=== PATIENT | male | born 1960 | race Caucasian/White ===

== ENCOUNTER → 2025-02-22 08:31 | Outpatient (REF) | payer OTHER, SELFPAY ==
[2025-02-22 09:20] LABS: % Basophils 1.2 % (0-2); % Eosinophils 4.4 % (0-6); % Immature Granulocytes 0.3 % (0-0.5); % Lymphocytes 24.9 % (20.5-51.1); % Monocytes 11.2 % (1.7-9.3); Absolute Eosinophils 0.2 10^3/uL (0-0.7); Absolute Lymphocytes 0.8 10^3/uL (1.2-3.4); Absolute Monocytes 0.4 10^3/uL (0.1-0.6); Hematocrit 38.4 % (39.0-52.0); Hemoglobin 13.3 g/dL (13.0-18.0); Mean Corp Hgb Conc. 34.6 g/dL (33.0-37.0); Mean Corpuscular Hgb 32.5 pg (27.0-31.0); Mean Corpuscular Volume 93.9 fL (80.0-94.0); Mean Platelet Volume 10.1 fL (7.4-10.4); Nucleated Red Blood Cells % 0 % (-); Platelet Count 210 10^3/uL (130-400); Red Blood Cell Count 4.09 10^6/uL (4.70-6.10); Red Cell Dist. Width 13.3 % (11.5-14.5); White Blood Cell Count 3.4 10^3/uL (4.8-10.8)
[2025-02-22 09:49] LABS: Blood Urea Nitrogen 31 mg/dl (9-20); Calcium 9.5 mg/dl (8.4-10.2); Carbon Dioxide 27 mmol/L (22-30); Chloride 104 mmol/L (98-107); Glucose 107 mg/dl (70-99); Sodium 135 mmol/L (135-145); eGFR > 60.00
== END ==
LOC: RCS 08:31
PROVIDERS: ATTENDING PHYSICIAN Orthopaedic Surgery; FAMILY PHYSICIAN Physician Assistant Medical
DX: Z01.818 Encounter for other preprocedural examination (principal)
CPT/HCPCS: 36415; 80048; 85025; 93005

== ENCOUNTER → 2025-05-02 07:19 | Outpatient (REF) | payer OTHER, SELFPAY | LOC: HWRAD 07:19 | PROVIDERS: ATTENDING PHYSICIAN Physician Assistant Medical; FAMILY PHYSICIAN Physician Assistant Medical | DX: R14.0 Abdominal distension (gaseous) (principal) | CPT/HCPCS: 76700 ==

== ENCOUNTER → 2025-08-01 09:12 | Outpatient (REF) | payer OTHER, SELFPAY | LOC: RAD 09:12 | PROVIDERS: ATTENDING PHYSICIAN Internal Medicine; FAMILY PHYSICIAN Physician Assistant Medical | DX: Z77.090 Contact with and (suspected) exposure to asbestos (principal) | CPT/HCPCS: 71046 ==

== ENCOUNTER 2025-08-14 11:01 | Inpatient (IN) | payer OTHER, SELFPAY ==
[2025-08-13] VITALS (14 sets, daily range): BP systolic 106–127; BP diastolic 45–85; BMI 21.0
--- NOTE | 2025-08-13 07:51 | ED.GENMED ---
History of Present Illness
General
Chief Complaint: Overdose Intentional
Time Seen by Provider: 08/13/25 07:51
History of Present Illness
History of Present Illness:
FOCUSED PAST MEDICAL HISTORY
- History of anxiety, history of reflux
REVIEW OF OLD RECORDS
- Patient had endoscopy 2014
Note:
CHIEF COMPLAINT(S)
Intentional overdose.
HISTORY OF PRESENT ILLNESS
The patient is a 65-year-old male who presented to the emergency department following a suspected overdose. Per the patient, he ingested several medications at approximately 1:00 AM, as an attempt to harm himself, citing feelings of hopelessness
related to ongoing health issues, including anxiety and reflux. He reported taking approximately 10 pills of Lexapro (escitalopram) at 5 milligrams each, 14 pills of Ativan (lorazepam) at 0.5 milligrams each, and 2 pills of Trazodone at 50
milligrams each. He expressed no current suicidal ideation. The patient denied any pain or discomfort at the time of assessment. His called emergency medical services, and he is agreeable to receiving help. The patient denied any history of
psychiatric facility admissions or substance abuse, including drugs or alcohol.
PAST MEDICAL AND SURIGICAL HISTORY
The patient has a history of anxiety and reflux.
CHRONIC MEDICAL CONDITIONS SIGNIFICANTLY AFFECTING CARE
Anxiety and reflux.
MEDICATIONS
- Lexapro (escitalopram) 5 mg, ingestion of approximately 10 pills.
- Ativan (lorazepam) 0.5 mg, ingestion of approximately 14 pills.
- Trazodone 50 mg, ingestion of approximately 2 pills.
PHYSICAL EXAM
General: Alert, no acute distress.
Skin: Warm, dry.
Head: Normocephalic, atraumatic.
Neck: Supple, trachea midline.
Eye, Ears, Nose, Mouth and Throat: Oral mucosa moist.
Cardiovascular: Normal peripheral perfusion, no edema.
Respiratory: Respirations are non-labored.
Gastrointestinal: Abdomen nondistended.
Back: Normal range of motion, normal alignment.
Musculoskeletal: Normal range of motion, normal strength.
Neurological: Alert and oriented to person, place, time, and situation, no focal neurological deficit observed.
Psychiatric: Cooperative, appropriate mood & affect, somewhat flat depressed effect.
PROBLEM LIST
- Acute: Suspected overdose (intentional).
- Chronic: Anxiety, reflux.
PLAN
- Administer IV fluids.
- Continuous cardiac monitoring due to medication ingestion.
- Psychiatric evaluation and potential placement in a psychiatric facility.
- Assess home safety, including the presence of firearms.
DIFFERENTIAL DIAGNOSIS
The Differential Diagnosis includes, in no particular order and is not limited to:
1. Intentional overdose
2. Accidental overdose
3. Depression with suicidal ideation
4. Anxiety exacerbation
5. Medication side effects
6. Serotonin syndrome
7. Substance abuse (denied by the patient)
8. Electrolyte imbalance due to medication ingestion
9. Self-harm behavior
10. Adverse reaction to polypharmacy
EKG
- Sinus 47, left bundle branch block is old, QTc 465 ms
LABS
- Sodium 127
SUMMARY OF ENCOUNTER
The patient, a 65-year-old male, presented to the emergency department following a suspected medication overdose involving escitalopram, lorazepam, and trazodone. The patient expressed feelings of hopelessness and suicidal ideation linked to chronic
health issues. He ingested these medications at approximately 1:00 AM. On assessment, he was alert, cooperative, and had no active suicidal ideation. Clinical evaluation revealed mild hyponatremia, potentially due to escitalopram use. IV fluids were
administered in the emergency department, and continuous cardiac monitoring was conducted. Arrangements for psychiatric facility transfer were initiated due to the nature of the overdose and underlying psychiatric concerns.
DISPOSITION
Transfer to a psychiatric facility.
ASSESSMENT
- Suspected intentional overdose.
- Anxiety and reflux-related symptoms.
- Hyponatremia, likely related to escitalopram use.
PLAN
- Administer IV fluids to address hyponatremia.
- Continuous cardiac monitoring.
- Transfer to a psychiatric facility for further evaluation and treatment.
- Psychiatric evaluation to assess mental health status and any additional interventions required.
INDEPENDENT REVIEW OF LABS AND INTERPRETATION OF TESTS
My independent review of the metabolic panel indicates low sodium (hyponatremia).
FOLLOW-UP INSTRUCTIONS
Arrange for follow-up care post-psychiatric facility discharge, including primary care and mental health specialist evaluations.
MEDICATION RECONCILIATION
- Ingested Medications: Escitalopram (Lexapro) 5 mg, approximately 10 pills; Lorazepam (Ativan) 0.5 mg, approximately 14 pills; Trazodone 50 mg, approximately 2 pills.
MEDICAL DECISION MAKING
- Number and Complexity of Problems Addressed:
Chronic conditions affecting care: Anxiety, reflux.
Differential Diagnosis: Intentional overdose, Accidental overdose, Depression with suicidal ideation, Anxiety exacerbation, Medication side effects, Serotonin syndrome, Electrolyte imbalance due to medication ingestion, Self-harm behavior, Adverse
reaction to polypharmacy.
- Data:
Category 1:
My independent review of the metabolic panel indicates low sodium levels.
Category 3:
The patients case management and transfer were discussed with crisis intervention workers for psychiatric facility placement.
- Risk:
Prescription drug management due to the acute overdose and psychiatric status. Consideration of Admission/Observation: Escalation of care including admission/observation was considered given the complexity and risk of the patients presenting
complaint, exam findings, and/or their underlying comorbidities. However, ultimately I feel the patient is safe for outpatient management with close follow-up. Reasoning: Work-up reassuring, does not reveal any acute life/organ threatening
processes, patients symptoms well controlled upon reevaluation, reexamination is reassuring, vitals are stable, patient agreeable with discharge, reliable for follow-up.
DIAGNOSIS
- Intentional overdose (ICD-10: T36.1X1A).
- Hyponatremia, possibly escitalopram-related (ICD-10: E87.1).
- Anxiety disorder (ICD-10: F41.9).
UPDATE
- I spoke to EMS upon arrival who indicates the patient intentionally overdosed on Ativan, trazodone, and Lexapro
- Mild hyponatremia may be related to Lexapro use
- Tylenol aspirin and alcohol detected, UDS positive for benzos
- Chronic bradycardia noted in the ED and he has been on the middle school tutor
- Patient was was accepted at [facility] however [facility] wants us to discussed with toxicology
- I spoke to the aerial planting and cultivation manager at [facility] who recommends 24 hours on the monitor before medically cleared especially with underlying chronic QTc elevation; he also mention the possibility of delayed seizure
- I also reached out to on-call psychiatrist, Dr. Silva who recommends holding the meds for now
Phy Exam
Physical Exam
Physical Exam:
See HPI
Course
Orders/Labs/Results
Orders:
Orders
08/13/25 07:52
0.9% Sodium Chloride 1000 ml [Nss] 1,000 ml IV BOLUS
08/13/25 08:12
Add On- LAB Urgent
Tests Added?: tsh reflex fT4
Electrocardiogram (*1) Urgent
Reason for Study: QTc Monitoring
Crisis Consult Urgent
Reason for Consult: intentional OD
EKG- Treatment ONCE
08/13/25 08:13
Acetaminophen Urgent
Alcohol Urgent
Complete Blood Count/With Diff Urgent
Comprehensive Metabolic Panel Urgent
Fentanyl, Urine Urgent
Salicylate Urgent
TSH Reflex To Free T4 Urgent
Comment: ADD ON
Urine Drug Abuse Screen Urgent
Date Specimen was Collected: 08/13/25
Time Specimen was Collected: 08:02
08/13/25 08:18
1:1 Observation - Suicide/ Violent Behavior As Directed
Abnormal Lab Results
08/13/25
08:13
WBC 2.5 L 10^3/uL
(4.8-10.8)
RBC 4.67 L 10^6/uL
(4.70-6.10)
MCH 31.7 H pg
(27.0-31.0)
Absolute Neuts (auto) 1.3 L 10^3/uL
(1.4-6.5)
Absolute Lymphs (auto) 0.8 L 10^3/uL
(1.2-3.4)
Monocytes % 12.7 H %
(1.7-9.3)
Sodium 127 L mmol/L
(135-145)
Chloride 92 L mmol/L
(98-107)
BUN 22 H mg/dl
(9-20)
Glucose 102 H mg/dl
(70-99)
Salicylates < 1.0 L mg/dl
(2.0-20.0)
Acetaminophen < 10 L ug/ml
(10-30)
U Benzodiazepines Scrn Positive H
(Negative)
08/13/25 08:13
08/13/25 08:13
Vital Signs
Initial and Last Documented VS:
Initial Vital Signs
Temp Pulse Resp BP Pulse Ox
34.7 C L 47 16 121/67 98
08/13/25 07:53 08/13/25 07:53 08/13/25 07:53 08/13/25 07:53 08/13/25 07:53
Last Documented Vital Signs
Temp Pulse Resp BP Pulse Ox
35.4 C L 56 19 111/63 99
08/13/25 09:47 08/13/25 12:45 08/13/25 12:45 08/13/25 12:00 08/13/25 12:45
*Pulse Oximetry
Patient hypoxic: no
*Critical Care Note
Total Time (30-74mins, 75-104mins- exclusive of procedures): Not Applicable
ED Attending Note
-
Portions of this chart may have been created with voice recognition software.� Occasional wrong word or��sound alike� substitutions may have occurred due to the inherent limitations of voice recognition software.
Discharge Plan
Departure
Patient Disposition: Psych Facility
Date of Disposition: 08/13/25
Time of Disposition: 09:48
Discharge Problem:
Suicide attempt
Referrals:
Laura Hernandez PA-C [Family Provider, Internal Medicine]
Interventions
Interventions:
*General Assessment Last Done: 08/13/25 07:53
*Neglect/Abuse Screening Last Done: 08/13/25 07:53
*ED COVID-19 Vaccine History Last Done: 08/13/25 08:18
*ED Influenza Vaccine History Last Done: 08/13/25 08:18
[facility] Fall Risk Assessment Tool Last Done: 08/13/25 09:46
*Risk Screen - Suicide (C-SSRS) Last Done: 08/13/25 08:17
ED- Cardiac Assessment Last Done: 08/13/25 08:18
ED- Neurological Assessment Last Done: 08/13/25 08:18
ED-Psychological Assessment Last Done: 08/13/25 08:18
ED- Pulmonary Assessment Last Done: 08/13/25 08:18
Discharge Date and Time
Print Language: LATVIAN
[2025-08-13] MEDS: NSS 1000 IV ×2 (08:11→19:35)
[2025-08-13 08:31] LABS: Hematocrit 42.0 % (39.0-52.0); Hemoglobin 14.8 g/dL (13.0-18.0); Mean Corp Hgb Conc. 35.2 g/dL (33.0-37.0); Mean Corpuscular Volume 89.9 fL (80.0-94.0); Nucleated Red Blood Cells % 0 % (-); Platelet Count 193 10^3/uL (130-400); Red Cell Dist. Width 13.0 % (11.5-14.5)
[2025-08-13 08:38] LABS: ALT (SGPT) 41 U/L (0-50); AST (SGOT) 41 U/L (17-59); Acetaminophen < 10 ug/ml (10-30); Albumin 4.5 g/dl (3.5-5.0); Alkaline Phosphatase 64 U/L (38-126); Blood Urea Nitrogen 22 mg/dl (9-20); Calcium 9.2 mg/dl (8.4-10.2); Carbon Dioxide 29 mmol/L (22-30); Chloride 92 mmol/L (98-107); Glucose 102 mg/dl (70-99); Potassium 4.5 mmol/L (3.5-5.1); Salicylate < 1.0 mg/dl (2.0-20.0); Sodium 127 mmol/L (135-145); Total Protein 7.6 g/dl (6.3-8.2); eGFR > 60.00
--- NOTE | 2025-08-13 15:25 | HPS.HSE ---
Family Physician
-
Family Physician: Laura Hernandez PA-C
Chief Complaint
-
Overdose
History of Present Illness
Patient is a 65 years old male with severe anxiety, possible depression who was brought to the emergency room after found down today.
Patient took ten 5 mg Lexapro pills, 14 pills of Ativan 0.5 mg, 2 pills of trazodone 50 mg. Intention was ' get out this pain and anxiety'
Patient was found by his spouse. At the time of the ambulance arrived patient was hemodynamically stable with stable respiratory status. He woke up in the ambulance.
On arrival to the emergency room patient is hemodynamically stable.
Initial workup showed unremarkable laboratory findings except mild hyponatremia. ECG
With sinus bradycardia, old LBBB, and chronically prolonged QT.
Poison Control Center has been contacted with suggestions of close monitoring in the hospital for 24 hours prior to psychiatric disposition.
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
He is following with outpatient psychiatry and recently initiated on Lexapro less than a month ago. He has been taking lorazepam inconsistently over the last few days. He had been prescribed trazodone for sleep and took it once or twice.
Patient also has urinary complaints with retention and dysuria and recently placed on TMP sulfa empirically for UTI.
Medical History
Past Medical History
Past Medical History: Reports GERD and HTN
Past Surgical History: Reports Other (Left total hip arthroplasty. Bilateral inguinal hernia repair remote.)
Social History
Tobacco: Non-smoker
Alcohol: None
Drug: None
Personal:
Living: With Family
Employment: Employed
Family History
Family History: Not pertinent
Allergies / Home Medications
Allergies reflects when Allergies were last updated in [employer].
Home Medications with original date entered in [employer]
Allergy/Medication List:
Allergies
Allergy/AdvReac Type Severity Reaction Status Date / Time
No Known Allergies Allergy Unverified 08/13/25 08:08
Home Medications
escitalopram oxalate 5 mg tablet (Lexapro) 5 mg PO DAILY Mental Health/Anxiety 08/13/25
famotidine 20 mg tablet (Pepcid AC) 40 mg PO BID Gastrointestinal Issue 08/13/25
lorazepam 0.5 mg tablet 0.5 mg PO HSPRN PRN sleep 08/13/25
magnesium oxide 500 mg capsule 500 mg PO HS Supplement 08/13/25
olmesartan 5 mg tablet (Benicar) 5 mg PO DAILY Heart Disease/Condition 08/13/25
sulfamethoxazole 800 mg-trimethoprim 160 mg tablet (Bactrim DS) 1 tab PO BID Infection 08/13/25
therapeutic multivitamin 1 tab PO DAILY 08/13/25
Review of Systems
-
A 12 point ROS was completed and negative except as noted: Yes
Physical Exam
Vital Signs
Vital Signs
Temp Pulse Resp BP Pulse Ox
96.7 F L 56 19 111/63 99
08/13/25 13:36 08/13/25 12:45 08/13/25 12:45 08/13/25 12:00 08/13/25 12:45
Physical Exam
General: Well Developed, Well Nourished and No Apparent Distress
HEENT: NormoCephalic, Moist mucous membranes and Atraumatic
Respiratory: Clear
Cardiac: S1/S2 and Regular Rhythm; No Murmur or Rub
GI: Soft, Non Tender, Non Distended and Normal Bowel Sounds; No Organomegaly
Rectal: Deferred by Provider
Musculoskeletal: No Clubbing, No Cyanosis and No Edema
Skin: No Rash
Neuro: Nonfocal/grossly intact
Laboratory Results
-
08/13/25 08:13
08/13/25 08:13
Laboratory Results
Total Bilirubin 1.0 mg/dl (0.2-1.3) 08/13/25 08:13
AST 41 U/L (17-59) 08/13/25 08:13
ALT 41 U/L (0-50) 08/13/25 08:13
Alkaline Phosphatase 64 U/L (38-126) 08/13/25 08:13
Impression/Plan
-
Impression
Intentional drug overdose with Lexapro, trazodone, Ativan.
Hyponatremia
Conditions prior to admission
Anxiety, possible depression versus adjustment disorder
Hypertension
GERD
Left hip arthroplasty May 2025
PLAN:
Intentional drug overdose with Lexapro trazodone and Ativan
Currently patient denies any suicidal ideation, although frustrated and anxious about his medical conditions and being out of work.
ED reviewed with Poison Control Center with recommendation of close monitoring.
ECG with sinus bradycardia, LBBB and chronic QT prolongation.
Monitor on telemetry
IV fluids
Repeat ECG in AM.
Psychiatry consultation for final disposition. Currently suggested to inpatient psych treatment
Hyponatremia sodium 127
Normotensive
Check TSH
Check urine osmolarity
Hold SSRI for now (trazodone and Lexapro)
Follow BMP
Challenge with isotonic solution.
Urinary complaints including dysuria possibly retention.
Empirically treated UTI with TMP sulfa.
Recheck urinalysis and reflex to culture.
Bladder scan for retention.
Hold off on further antibiotics.
--- NOTE | 2025-08-13 17:37 | EDCM ---
Reviewed chart and met with pt bedside in ED. Lives with his in [address], [address]. Has first floor half bath.
Independent in ADLs, personal care and ambulation at baseline.
PMH includes anxiety, reflux, HTN and L Hip replacement in May.
Confirms prescription coverage.
Hx VN after L hip replacement, unsure of agency, no hx SNF
PCP: Laura Hernandez
Pharmacy: [facility]
OBS form reviewed and signed.
CM will continue to follow for all discharge planning needs.
[2025-08-13] MEDS: PEPCID 40 MG PO (19:34)
[2025-08-13] MEDS: HEPARIN 5000 UNITS SC (19:34)
--- NOTE | 2025-08-13 20:50 | PTCARENOTE ---
Pt arrived to unit from ED via stretcher. 1:[address] for suicide attempt. Pt stood and pivoted from the stretcher to the bed with an assist of 1. Pt A & O x 3. VSS. Pt oriented to room. Call robledo within reach. 1:1 sitter at the
bedside.
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
--- NOTE | 2025-08-14 00:04 | PTCARENOTE ---
Pt admitted to ED for suicide attempt with substance overdose. Pt ingested copious amounts of prescription drugs. Provider is aware. 1:1 observation ordered and maintained.
[2025-08-14 03:00] VITALS: BP 115/60
[2025-08-14 05:01] LABS: Urine Character Clear (Clear)
[2025-08-14] MEDS: NSS 1000 IV (05:44)
[2025-08-14 07:38] LABS: Hematocrit 37.4 % (39.0-52.0); Hemoglobin 13.0 g/dL (13.0-18.0); Mean Corp Hgb Conc. 34.8 g/dL (33.0-37.0); Mean Corpuscular Volume 92.1 fL (80.0-94.0); Nucleated Red Blood Cells % 0 % (-); Platelet Count 157 10^3/uL (130-400); Red Cell Dist. Width 13.2 % (11.5-14.5)
[2025-08-14 07:57] VITALS: BP 127/74
[2025-08-14] MEDS: HEPARIN 5000 UNITS SC (08:14)
[2025-08-14] MEDS: PEPCID 40 MG PO ×2 (08:14→19:59)
[2025-08-14 08:30] LABS: Blood Urea Nitrogen 19 mg/dl (9-20); Calcium 8.5 mg/dl (8.4-10.2); Carbon Dioxide 25 mmol/L (22-30); Chloride 91 mmol/L (98-107); Estimated Creatinine Clearance 88 ml/min; Glucose 86 mg/dl (70-99); Potassium 4.7 mmol/L (3.5-5.1); Sodium 121 mmol/L (135-145); eGFR > 60.00
--- NOTE | 2025-08-14 11:16 | W.CON.NEPH ---
Consultation
-
Date/Time Consultation Requested: 08/14/2025 11:15 AM
Date/Time Consultation Performed: 08/14/2025 11:15 AM
Requesting Provider: Dr. Briggs
Performing Provider: Dr. Moore
Reason for Consultation: Hyponatremia
Medical History
-
Chief Complaint: Hyponatremia
History of Present Illness:
Patient is a 65 years old male with severe anxiety maintained on lorazepam and lexapro, HTN on Olmesartan, possible depression who was brought to the emergency room after found down today.
Patient took ten 5 mg Lexapro pills, 14 pills of Ativan 0.5 mg, 2 pills of trazodone 50 mg. Intention was ' get out this pain and anxiety'
Patient was found by his spouse. At the time of the ambulance arrived patient was hemodynamically stable with stable respiratory status. He woke up in the ambulance.
On arrival to the emergency room patient is hemodynamically stable.
Initial workup showed unremarkable laboratory findings except mild hyponatremia. ECG
With sinus bradycardia, old LBBB, and chronically prolonged QT.
Poison Control Center has been contacted with suggestions of close monitoring in the hospital for 24 hours prior to psychiatric disposition.
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
He is following with outpatient psychiatry and recently initiated on Lexapro less than a month ago. He has been taking lorazepam inconsistently over the last few days. He had been prescribed trazodone for sleep and took it once or twice.
Patient also has urinary complaints with retention and dysuria and recently placed on TMP sulfa empirically for UTI. His serum sodium is now depressed from 129 on admission to 121 and nephrology was asked to see the patient. Urine osm 675.
Past Medical History
Past Medical History: Reports GERD and HTN,Depressiona and Anxiety
Past Surgical History: Reports Other (Left total hip arthroplasty. Bilateral inguinal hernia repair remote.)
Social History
Tobacco: Non-Smoker
Alcohol: None
Drug: None
Family History
Family History: Not Pertinent
Allergies / Home Medications
Allergy/AdvReac Type Severity Reaction Status Date / Time
No Known Allergies Allergy Unverified 08/13/25 08:08
�Medication �Instructions �Recorded �Confirmed �Type
escitalopram oxalate 5 mg tablet 5 mg PO DAILY Mental Health/Anxiety 08/13/25 08/13/25 History
(Lexapro)
famotidine 20 mg tablet (Pepcid AC) 40 mg PO BID Gastrointestinal Issue 08/13/25 08/13/25 History
lorazepam 0.5 mg tablet 0.5 mg PO HSPRN PRN sleep 08/13/25 08/13/25 History
magnesium oxide 500 mg capsule 500 mg PO HS Supplement 08/13/25 08/13/25 History
olmesartan 5 mg tablet (Benicar) 5 mg PO DAILY Heart 08/13/25 08/13/25 History
Disease/Condition
sulfamethoxazole 800 1 tab PO BID Infection 08/13/25 08/13/25 History
mg-trimethoprim 160 mg tablet
(Bactrim DS)
therapeutic multivitamin 1 tab PO DAILY Supplement 08/13/25 08/13/25 History
Review of Systems
-
History Source: Patient
All other systems: Negative unless noted
Physical Exam
Vital Signs
Vital Signs
Temp Pulse Resp BP Pulse Ox
97.6 F 55 18 127/74 97
08/14/25 07:57 08/14/25 07:57 08/14/25 07:57 08/14/25 07:57 08/14/25 07:57
Lab Results
08/14/25 07:26
WBC 2.5 10^3/uL (4.8-10.8) L 08/14/25 07:26
RBC 4.06 10^6/uL (4.70-6.10) L 08/14/25 07:26
Hgb 13.0 g/dL (13.0-18.0) 08/14/25 07:26
Hct 37.4 % (39.0-52.0) L 08/14/25 07:26
Plt Count 157 10^3/uL (130-400) 08/14/25 07:26
eGFR > 60.00 08/14/25 07:26
Albumin 4.5 g/dl (3.5-5.0) 08/13/25 08:13
Physical Exam
General: Well Developed, Well Nourished and No Apparent Distress, awake alert and orient x 3
HEENT: NormoCephalic, Moist mucous membranes and Atraumatic
Respiratory: Clear bilaterally with normal lung excursion
Cardiac: S1/S2 and Regular Rhythm; No Murmur or Rub
GI: Soft, Non Tender, Non Distended and Normal Bowel Sounds; No Organomegaly
Rectal: Deferred by Provider
Musculoskeletal: No Clubbing, No Cyanosis and No Edema
Skin: No Rash
Neuro: Nonfocal/grossly intact
Vascular: 2+ radial and dorsalis pedis pulse
Data Reviewed
-
Medical Tests (Nuc Med, Echo etc): Other (EKG report reviewed personally 40 bpm bradycardia there was a left bundle branch block pattern noted)
Labs: Labs Reviewed by me (BMP CBC urine osm)
Old Records: Reviewed (reviewed old labs from [facility] 02/22/25)
Assessment/Plan
-
Impression:
Intentional drug overdose with Lexapro, trazodone, Ativan.
Hyponatremia
HTN
Anxiety/Depression
Plan:
-Hyponatremia likely consistent with SIADH potentiated by SSRI overdose urine Osmo greater than 6
- Withholding SSRI
- Discontinue isotonic saline and will provide hypertonic saline
- Fluid restriction to 1200 cc daily
- Follow-up lites in 6 hours
--- NOTE | 2025-08-14 11:31 | W.PN.UPDATE ---
Update Note
Progress Note Update
patient seen chart reviewed. spoke to nursing and to dr good. the patient admits to overdose of his medication. he said it was a cry for help he did not really want to but felt so overwhelmed by health issues, the stress of working etc etc.
the one bright spot in his life is his two month old grandson but he worries w all his medical issues he won't be able to be there for him. 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 his attention and
concentration was impaired not only by his depression but he felt made worse by lexapro which had helped him before. i wondered if the low sodium was also contributory to issues w focus. at this point patient does not want to .he has family who
love him and wants to be there for them. he is willing to go to in patient psych for treatment which we are looking into although doubtful he can go with sodium of 121. may need to wait until tomorrow or the next day. need to hold off on antidep
at the moment. psych will follow can dc one to one. patient states he can contract for safety
[2025-08-14 11:39] VITALS: BP 128/77
--- NOTE | 2025-08-14 12:00 | W.PN.HOSP.TC ---
Today's Communication/Plan
-
Hyponatremia management
Assessment / Plan
Assessment / Plan
Impression
Intentional drug overdose with Lexapro, trazodone, Ativan.
Hyponatremia
Conditions prior to admission
Anxiety, possible depression versus adjustment disorder
Hypertension
GERD
Left hip arthroplasty May 2025
PLAN:
Intentional drug overdose with Lexapro trazodone and Ativan
Currently patient denies any suicidal ideation, although frustrated and anxious about his medical conditions and being out of work.
ED reviewed with [facility] with recommendation of close monitoring.
ECG with sinus bradycardia, LBBB and chronic QT prolongation.
Follow-up ECG with stable QTc at 465
And further interview denies any suicidal ideation
Psychiatry input appreciated recommending inpatient psych treatment
Hyponatremia sodium 127�121
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
Normotensive
Abnormal TFT
Urine osmolarity 625 confirms high ADH state
Hold SSRI for now (trazodone and Lexapro)
He does report dizziness and concentration issues.
Free water restriction to 1200 mL
Hypertonic solution
Serial BMP
Nephrology evaluation
Urinary complaints including dysuria possibly retention.
Empirically treated UTI with TMP sulfa.
Afebrile
No urinary complaints currently
Repeat urinalysis normal
Monitor closely off antibiotic
Anticipated Discharge: 24 - 48 hours
Subjective/Interval History
-
Date of Service: August 14, 2025
Objective Data
-
Labs:
Laboratory Results
08/14/25 08/14/25 08/14/25
07:26 11:14 19:01
WBC 2.5 L
Hgb 13.0
Hct 37.4 L
Plt Count 157
Sodium 121 L Pending Pending
Potassium 4.7 Pending Pending
Chloride 91 L Pending Pending
Carbon Dioxide 25 Pending Pending
BUN 19 Pending Pending
Creatinine 0.9 Pending Pending
Glucose 86 Pending Pending
Calcium 8.5 Pending Pending
Vital Signs:
Vital Signs
Temp Pulse Resp BP Pulse Ox
98.1 F 50 16 128/77 98
08/14/25 11:39 08/14/25 11:39 08/14/25 11:39 08/14/25 11:39 08/14/25 11:39
I&O
08/13/25 08/14/25 08/15/25
06:59 06:59 06:59
Intake Total 480 / 480
Output Total 350 / 350
Balance 130 / 130
Physical Exam
-
General: Well Developed and No Apparent Distress
HEENT: Normocephalic, Atraumatic and Moist Mucous Membranes
Respiratory: Clear to Auscultation
Cardiac: Regular Rhythm and S1/S2; Negative Murmur, Rub or Gallop
GI: Soft, Nontender, Nondistended and Normal Bowel Sounds; Negative Organomegaly
Rectal: Deferred by Provider
Musculoskeletal: No Clubbing, No Cyanosis and No Edema
Skin: Negative Rash
Neuro: Nonfocal/Grossly Intact
[2025-08-14] MEDS: SODIUM CHLORIDE 3% 250 IV ×2 (12:22→20:52)
[2025-08-14 13:53] LABS: Blood Urea Nitrogen 18 mg/dl (9-20); Calcium 8.3 mg/dl (8.4-10.2); Carbon Dioxide 27 mmol/L (22-30); Chloride 89 mmol/L (98-107); Estimated Creatinine Clearance 88 ml/min; Glucose 82 mg/dl (70-99); Potassium 4.3 mmol/L (3.5-5.1); Sodium 120 mmol/L (135-145); eGFR > 60.00
[2025-08-14 15:51] VITALS: BP 137/79
[2025-08-14 16:04] VITALS: BMI 21.0
--- NOTE | 2025-08-14 18:04 | CM ---
Transitioned to inpatient.Stabilize NA levels. Discharge POC: When medically stable find appropriate psych placement.
[2025-08-14 19:17] VITALS: BP 139/73
[2025-08-14] MEDS: HEPARIN SC (19:59)
[2025-08-14 20:34] LABS: Blood Urea Nitrogen 18 mg/dl (9-20); Calcium 8.2 mg/dl (8.4-10.2); Carbon Dioxide 24 mmol/L (22-30); Chloride 90 mmol/L (98-107); Estimated Creatinine Clearance 99 ml/min; Glucose 113 mg/dl (70-99); Potassium 4.3 mmol/L (3.5-5.1); Sodium 118 mmol/L (135-145); eGFR > 60.00
--- NOTE | 2025-08-14 21:05 | PTCARENOTE ---
Sodium resulted at 118. Provider notified and orders received. Pt c/o feeling weak and tired. Placed pt on seizure precautions. No seizure pads available on unit. Placed pillows and blankets around bed rails for safety.
[2025-08-14 23:11] VITALS: BP 129/73
[2025-08-15] VITALS (7 sets, daily range): BP systolic 121–133; BP diastolic 63–75
[2025-08-15 01:47] LABS: Blood Urea Nitrogen 19 mg/dl (9-20); Calcium 8.1 mg/dl (8.4-10.2); Carbon Dioxide 22 mmol/L (22-30); Chloride 94 mmol/L (98-107); Estimated Creatinine Clearance 99 ml/min; Glucose 95 mg/dl (70-99); Potassium 4.3 mmol/L (3.5-5.1); Sodium 122 mmol/L (135-145); eGFR > 60.00
--- NOTE | 2025-08-15 03:02 | W.PN.UPDATE ---
Update Note
Progress Note Update
1999 Na 118, Hypertonic solution order placed per grout pump operator.
0200 Na 122
0250 RN reports HR 20's -30's patient asymptomatic. BP 124/63 HR 52 SPo2 97 room air RR 16 BS 101, denies hx of sleep apnea
EKG done labs ordered for AM
strip noted, likely false alarm. HR 44
patient with no new symptoms.
will continue hypertonic solutions per grout pump operator
will d/c Trop and TSH order.
[2025-08-15 03:07] LABS: Glucose - Point of Care 106 mg/dl (70-99)
[2025-08-15 04:21] LABS: Hematocrit 34.5 % (39.0-52.0); Hemoglobin 11.9 g/dL (13.0-18.0); Mean Corp Hgb Conc. 34.5 g/dL (33.0-37.0); Mean Corpuscular Volume 92.2 fL (80.0-94.0); Platelet Count 148 10^3/uL (130-400); Red Cell Dist. Width 13.1 % (11.5-14.5)
[2025-08-15 04:48] LABS: Blood Urea Nitrogen 18 mg/dl (9-20); Calcium 8.1 mg/dl (8.4-10.2); Carbon Dioxide 23 mmol/L (22-30); Chloride 95 mmol/L (98-107); Estimated Creatinine Clearance 99 ml/min; Glucose 89 mg/dl (70-99); Potassium 4.3 mmol/L (3.5-5.1); Sodium 122 mmol/L (135-145); eGFR > 60.00
[2025-08-15] MEDS: SODIUM CHLORIDE 3% 250 IV (06:02)
[2025-08-15] MEDS: PEPCID 40 MG PO ×2 (09:13→20:06)
[2025-08-15] MEDS: HEPARIN SC ×2 (09:17→20:09)
[2025-08-15 09:33] LABS: Blood Urea Nitrogen 17 mg/dl (9-20); Calcium 8.1 mg/dl (8.4-10.2); Carbon Dioxide 24 mmol/L (22-30); Chloride 94 mmol/L (98-107); Estimated Creatinine Clearance 99 ml/min; Glucose 98 mg/dl (70-99); Potassium 4.1 mmol/L (3.5-5.1); Sodium 122 mmol/L (135-145); eGFR > 60.00
--- NOTE | 2025-08-15 10:53 | W.PN.UPDATE ---
Update Note
Progress Note Update
patient seen chart reviewed. spoke with nursing. 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 he is very willing to get to a psych facility 'i want help'. his sodium however remains too low for dc to psych. he is very worried there is something else wrong with
him eg occult malignancy. he lost 8 lbs, had some prostate issue. communicated this to dr hernandez. we discussed the issue of antidep and hyponatremia. also gave him info about the general rx of depression with meds, what he might expect on psych
unit. he is very motivated for treatment to deal with his depression and anxiety.
--- NOTE | 2025-08-15 13:33 | W.PN.HOSP.TC ---
Today's Communication/Plan
-
Symptomatic hyponatremia (blurry vision)
Currently on hypertonic solution
Free water restriction
Off SSRI
Follow BMP
Assessment / Plan
Assessment / Plan
Impression
Intentional drug overdose with Lexapro, trazodone, Ativan.
Hyponatremia
Conditions prior to admission
Anxiety, possible depression versus adjustment disorder
Hypertension
GERD
Left hip arthroplasty May 2025
PLAN:
Intentional drug overdose with Lexapro trazodone and Ativan
Currently patient denies any suicidal ideation, although frustrated and anxious about his medical conditions and being out of work.
ED reviewed with [facility] Control Center with recommendation of close monitoring.
ECG with sinus bradycardia, LBBB and chronic QT prolongation.
Follow-up ECG with stable QTc at 465
And further interview denies any suicidal ideation
Psychiatry input appreciated recommending inpatient psych treatment
Hyponatremia sodium alexx at 118�122
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
Normotensive
Normal TSH
Urine osmolarity 625 confirms high ADH state
Hold SSRI for now (trazodone and Lexapro)
He does report dizziness and concentration issues.
Free water restriction to 1200 mL
Hypertonic solution
Serial BMP
Nephrology follow-up
Urinary complaints including dysuria possibly retention.
Empirically treated UTI with TMP sulfa.
Afebrile
No urinary complaints currently
Repeat urinalysis normal
Monitor closely off antibiotic
Check PSA
Anticipated Discharge: 24 - 48 hours
Subjective/Interval History
-
Date of Service: August 15, 2025
Objective Data
-
Labs:
Laboratory Results
08/15/25 08/15/25 08/15/25
01:11 04:03 04:09
WBC 2.5 L
Hgb 11.9 L
Hct 34.5 L
Plt Count 148
Sodium 122 L 122 L
Potassium 4.3 4.3
Chloride 94 L 95 L
Carbon Dioxide 22 23
BUN 19 18
Creatinine 0.8 0.8
Glucose 95 89
Calcium 8.1 L 8.1 L
08/15/25 08/15/25 08/15/25
08:14 11:01 16:00
WBC
Hgb
Hct
Plt Count
Sodium 122 L Cancelled Pending
Potassium 4.1 Cancelled Pending
Chloride 94 L Cancelled Pending
Carbon Dioxide 24 Cancelled Pending
BUN 17 Cancelled Pending
Creatinine 0.8 Cancelled Pending
Glucose 98 Cancelled Pending
Calcium 8.1 L Cancelled Pending
08/15/25
23:59
WBC
Hgb
Hct
Plt Count
Sodium Pending
Potassium Pending
Chloride Pending
Carbon Dioxide Pending
BUN Pending
Creatinine Pending
Glucose Pending
Calcium Pending
Vital Signs:
Vital Signs
Temp Pulse Resp BP Pulse Ox
98.3 F 51 16 124/68 99
08/15/25 11:05 08/15/25 11:05 08/15/25 11:05 08/15/25 11:05 08/15/25 11:05
I&O
08/14/25 08/15/25 08/16/25
06:59 06:59 06:59
Intake Total 480 / 480 1080 / 1080
Output Total 350 / 350 275 / 275
Balance 130 / 130 805 / 805
Physical Exam
-
General: Well Developed and No Apparent Distress
HEENT: Normocephalic, Atraumatic and Moist Mucous Membranes
Respiratory: Clear to Auscultation
Cardiac: Regular Rhythm and S1/S2; Negative Murmur, Rub or Gallop
GI: Soft, Nontender, Nondistended and Normal Bowel Sounds; Negative Organomegaly
Rectal: Deferred by Provider
Musculoskeletal: No Clubbing, No Cyanosis and No Edema
Skin: Negative Rash
Neuro: Nonfocal/Grossly Intact
--- NOTE | 2025-08-15 15:53 | W.PN.NEPH.PH ---
Today's Communication / Plan
-
Samsca
Assessment/Plan
-
Impression:
Intentional drug overdose with Lexapro, trazodone, Ativan.
Hyponatremia
HTN
Anxiety/Depression
Plan:
-Hyponatremia likely consistent with SIADH potentiated by SSRI overdose urine Osmo greater than 6/reviewed previous labs from 2019 as patient had logged onto [facility] show that his sodiums typically run in the low 130-132 and at that time he was on
Lexapro as well.
- Withholding SSRI
- Fluid restriction to 1200 cc daily
- Follow-up lites in 6 hours
Will give 1 dose of Samsca as sodium has plateaued at 122
-
-
Date of Service: August 15, 2025
CC / HPI / ROS
-
Chief Complaint:
Hyponatremia
History of Present Illness:
Hyponatremia in the setting of SSRI and overdose
Review of Systems:
No chest pain or shortness of breath
Labs
-
Labs:
WBC 2.5 10^3/uL (4.8-10.8) L 08/15/25 04:09
RBC 3.74 10^6/uL (4.70-6.10) L 08/15/25 04:09
Hgb 11.9 g/dL (13.0-18.0) L 08/15/25 04:09
Hct 34.5 % (39.0-52.0) L 08/15/25 04:09
Plt Count 148 10^3/uL (130-400) 08/15/25 04:09
eGFR Cancelled 08/15/25 11:01
Albumin 4.5 g/dl (3.5-5.0) 08/13/25 08:13
Physical Exam
-
Vital Signs:
Vital Signs
Temp Pulse Resp BP Pulse Ox
98.1 F 53 16 131/75 99
08/15/25 15:40 08/15/25 15:40 08/15/25 15:40 08/15/25 15:40 08/15/25 15:40
Respiratory:: Bilateral: CTA
Lung Excursion:: Normal
Abdomen:: Soft
Bowel Sounds:: Normal
Extremity Edema:: None: Bilateral:
[2025-08-15 16:30] LABS: Blood Urea Nitrogen 20 mg/dl (9-20); Calcium 8.3 mg/dl (8.4-10.2); Carbon Dioxide 25 mmol/L (22-30); Chloride 92 mmol/L (98-107); Estimated Creatinine Clearance 88 ml/min; Glucose 95 mg/dl (70-99); Potassium 4.2 mmol/L (3.5-5.1); Sodium 122 mmol/L (135-145); eGFR > 60.00
[2025-08-15] MEDS: SAMSCA 15 MG PO (16:35)
[2025-08-15 17:00] LABS: PSA, Total - Screen 0.24 ng/ml (0.0-4.0)
--- NOTE | 2025-08-15 17:02 | CM ---
Per physician patient not medically appropriate for placement at this time. CM will continue to follow for placement when medically appropriate.
Plan; psych placement when medically appropriate.
[2025-08-15] MEDS: COLACE 100 MG PO (20:06)
[2025-08-16 00:26] LABS: Blood Urea Nitrogen 20 mg/dl (9-20); Calcium 9.0 mg/dl (8.4-10.2); Carbon Dioxide 26 mmol/L (22-30); Chloride 99 mmol/L (98-107); Estimated Creatinine Clearance 113 ml/min; Glucose 98 mg/dl (70-99); Potassium 4.1 mmol/L (3.5-5.1); Sodium 128 mmol/L (135-145); eGFR > 60.00
[2025-08-16 02:27] LABS: Blood Urea Nitrogen 19 mg/dl (9-20); Calcium 8.8 mg/dl (8.4-10.2); Carbon Dioxide 25 mmol/L (22-30); Chloride 100 mmol/L (98-107); Estimated Creatinine Clearance 113 ml/min; Glucose 96 mg/dl (70-99); Potassium 4.2 mmol/L (3.5-5.1); Sodium 130 mmol/L (135-145); eGFR > 60.00
[2025-08-16 03:27] VITALS: BP 110/67
[2025-08-16 07:45] VITALS: BP 112/64
--- NOTE | 2025-08-16 09:06 | W.PN.NEPH.PH ---
Today's Communication / Plan
-
Samsca
Assessment/Plan
-
Impression:
Intentional drug overdose with Lexapro, trazodone, Ativan.
Hyponatremia
HTN
Anxiety/Depression
Plan:
Continue fluid restriction
Samsca today
Follow BMP
Psychiatry follow-up
-
-
Date of Service: August 16, 2025
CC / HPI / ROS
-
Chief Complaint:
Hyponatremia
History of Present Illness:
Hyponatremia in the setting of SSRI and overdose
Sodium up to 130 after Samsca
BP stable off olmesartan
Review of Systems:
No chest pain or shortness of breath
Labs
-
Labs:
WBC 2.5 10^3/uL (4.8-10.8) L 08/15/25 04:09
RBC 3.74 10^6/uL (4.70-6.10) L 08/15/25 04:09
Hgb 11.9 g/dL (13.0-18.0) L 08/15/25 04:09
Hct 34.5 % (39.0-52.0) L 08/15/25 04:09
Plt Count 148 10^3/uL (130-400) 08/15/25 04:09
eGFR > 60.00 08/16/25 01:55
Albumin 4.5 g/dl (3.5-5.0) 08/13/25 08:13
Physical Exam
-
Vital Signs:
Vital Signs
Temp Pulse Resp BP Pulse Ox
97.5 F 46 16 110/67 96
08/16/25 03:27 08/16/25 03:27 08/16/25 03:27 08/16/25 03:27 08/16/25 03:27
Cardiovascular:: Regular rate and rhythm
Respiratory:: Bilateral: CTA
Lung Excursion:: Normal
Abdomen:: Nontender and Soft
Bowel Sounds:: Normal
Extremity Edema:: None: Bilateral:
[2025-08-16] MEDS: PEPCID 40 MG PO ×2 (09:53→19:45)
[2025-08-16] MEDS: SAMSCA 15 MG PO (09:53)
[2025-08-16] MEDS: HEPARIN SC ×2 (09:54→19:45)
[2025-08-16 10:46] LABS: Blood Urea Nitrogen 18 mg/dl (9-20); Calcium 9.0 mg/dl (8.4-10.2); Carbon Dioxide 28 mmol/L (22-30); Chloride 94 mmol/L (98-107); Estimated Creatinine Clearance 88 ml/min; Glucose 86 mg/dl (70-99); Potassium 4.5 mmol/L (3.5-5.1); Sodium 130 mmol/L (135-145); eGFR > 60.00
--- NOTE | 2025-08-16 11:08 | W.PN.UPDATE ---
Update Note
Progress Note Update
patient seen chart reviewed. discussed with nursing and cm. 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 sodium is coming up...last 130 this am. he asked me to tell him about local
facilities...what he can expect in terms of treatment, what he can bring.....[facility] tells me that had accepted him before medical issues necessitated his admit here. she is sending them clinical and hopefully he will be able to be transferred
there today or tomorrow.
[2025-08-16 11:11] VITALS: BP 134/70
--- NOTE | 2025-08-16 12:28 | PTCARENOTE ---
Assumed care of patient. Independent in the room. No needs at this time. Awaiting Dr Briggs for continued discharge planning.
--- NOTE | 2025-08-16 14:51 | CM ---
CM sent updated clinical information to [facility] this am and just received notice that [facility] wants all levels within normal range before patient is transferred. CM updated patient and information sent via tt to physician. Per [facility]
does not accept outside 201 and no 201 on chart at this time. CM completed all documentation for transfer forms and will follow for discharge planning needs.
Plan; voluntary 201 to [facility] when patient medically appropriate and pending bed availability
[2025-08-16 15:41] VITALS: BP 131/77
--- NOTE | 2025-08-16 16:47 | W.PN.HOSP.TC ---
Today's Communication/Plan
-
Sodium improved at 130.
Repeat Samsca today.
Disposition with plan for inpatient psych facility. They would accept only when sodium is 135 and above
Assessment / Plan
Assessment / Plan
Impression
Intentional drug overdose with Lexapro, trazodone, Ativan.
Hyponatremia
Conditions prior to admission
Anxiety, possible depression versus adjustment disorder
Hypertension
GERD
Left hip arthroplasty May 2025
PLAN:
Intentional drug overdose with Lexapro trazodone and Ativan
Currently patient denies any suicidal ideation, although frustrated and anxious about his medical conditions and being out of work.
ED reviewed with [facility] Control [facility] with recommendation of close monitoring.
ECG with sinus bradycardia, LBBB and chronic QT prolongation.
Follow-up ECG with stable QTc at 465
And further interview denies any suicidal ideation
Psychiatry input appreciated recommending inpatient psych treatment
Hyponatremia sodium alexx at 118�122
Suspect acute on chronic
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
Normotensive
Normal TSH
Urine osmolarity 625 confirms high ADH state
Hold SSRI for now (trazodone and Lexapro)
He does report dizziness and concentration issues.
Free water restriction to 1200 mL
Status post hypertonic solution
Status post Samsca second dose today
Sodium improved at 130
Serial BMP
Nephrology input appreciated
Urinary complaints including dysuria possibly retention.
Empirically treated UTI with TMP sulfa.
Afebrile
No urinary complaints currently
Repeat urinalysis normal
Monitor closely off antibiotic
PSA 0.24
Anticipated Discharge: Within 24 hours
Subjective/Interval History
-
Date of Service: August 16, 2025
Objective Data
-
Labs:
Laboratory Results
08/16/25
09:46
Sodium 130 L
Potassium 4.5
Chloride 94 L
Carbon Dioxide 28
BUN 18
Creatinine 0.9
Glucose 86
Calcium 9.0
Vital Signs:
Vital Signs
Temp Pulse Resp BP Pulse Ox
98.6 F 54 16 131/77 99
08/16/25 15:41 08/16/25 15:41 08/16/25 15:41 08/16/25 15:41 08/16/25 15:41
I&O
08/15/25 08/16/25 08/17/25
06:59 06:59 06:59
Intake Total 1080 / 1080 1460 / 1460
Output Total 275 / 275
Balance 805 / 805 1460 / 1460
Physical Exam
-
General: Well Developed and No Apparent Distress
HEENT: Normocephalic, Atraumatic and Moist Mucous Membranes
Respiratory: Clear to Auscultation
Cardiac: Regular Rhythm and S1/S2; Negative Murmur, Rub or Gallop
GI: Soft, Nontender, Nondistended and Normal Bowel Sounds; Negative Organomegaly
Rectal: Deferred by Provider
Musculoskeletal: No Clubbing, No Cyanosis and No Edema
Skin: Negative Rash
Neuro: Nonfocal/Grossly Intact
[2025-08-16 19:45] VITALS: BP 114/65
[2025-08-16] MEDS: COLACE 100 MG PO (19:48)
[2025-08-16 23:39] VITALS: BP 119/69
[2025-08-17 03:29] VITALS: BP 124/72
[2025-08-17 06:35] LABS: Blood Urea Nitrogen 25 mg/dl (9-20); Calcium 8.8 mg/dl (8.4-10.2); Carbon Dioxide 27 mmol/L (22-30); Chloride 98 mmol/L (98-107); Estimated Creatinine Clearance 88 ml/min; Glucose 88 mg/dl (70-99); Potassium 4.2 mmol/L (3.5-5.1); Sodium 129 mmol/L (135-145); eGFR > 60.00
[2025-08-17 07:00] VITALS: BP 132/73
[2025-08-17] MEDS: HEPARIN SC ×3 (08:31→20:25)
[2025-08-17] MEDS: PEPCID PO ×3 (08:32→20:25)
[2025-08-17 11:00] VITALS: BP 129/76
--- NOTE | 2025-08-17 11:02 | W.PN.NEPH.PH ---
Today's Communication / Plan
-
samsca
Assessment/Plan
-
Impression:
Intentional drug overdose with Lexapro, trazodone, Ativan.
Hyponatremia
HTN
Anxiety/Depression
Plan:
Continue fluid restriction
Samsca today
Follow BMP
start lasix and salt tabs
-
-
Date of Service: August 17, 2025
CC / HPI / ROS
-
Chief Complaint:
Hyponatremia
History of Present Illness:
Hyponatremia in the setting of SSRI and overdose
Sodium 129 unchanged after samsca
BP stable off olmesartan
Review of Systems:
No chest pain or shortness of breath
Labs
-
Labs:
WBC 2.5 10^3/uL (4.8-10.8) L 08/15/25 04:09
RBC 3.74 10^6/uL (4.70-6.10) L 08/15/25 04:09
Hgb 11.9 g/dL (13.0-18.0) L 08/15/25 04:09
Hct 34.5 % (39.0-52.0) L 08/15/25 04:09
Plt Count 148 10^3/uL (130-400) 08/15/25 04:09
Sodium 129 mmol/L (135-145) L 08/17/25 05:58
Potassium 4.2 mmol/L (3.5-5.1) 08/17/25 05:58
Chloride 98 mmol/L (98-107) 08/17/25 05:58
Carbon Dioxide 27 mmol/L (22-30) 08/17/25 05:58
BUN 25 mg/dl (9-20) H 08/17/25 05:58
Creatinine 0.9 mg/dL (0.7-1.3) 08/17/25 05:58
eGFR > 60.00 08/17/25 05:58
Glucose 88 mg/dl (70-99) 08/17/25 05:58
Calcium 8.8 mg/dl (8.4-10.2) 08/17/25 05:58
Albumin 4.5 g/dl (3.5-5.0) 08/13/25 08:13
Physical Exam
-
Vital Signs:
Vital Signs
Temp Pulse Resp BP Pulse Ox
97.6 F 57 20 132/73 100
08/17/25 07:00 08/17/25 07:00 08/17/25 07:00 08/17/25 07:00 08/17/25 07:00
Cardiovascular:: Regular rate and rhythm
Respiratory:: Bilateral: CTA
Lung Excursion:: Normal
Abdomen:: Nontender and Soft
Bowel Sounds:: Normal
Extremity Edema:: None: Bilateral:
[2025-08-17] MEDS: SODIUM CHLORIDE 0.5 GRAM PO ×2 (11:52→20:26)
[2025-08-17] MEDS: SAMSCA 15 MG PO (12:04)
--- NOTE | 2025-08-17 12:24 | PTCARENOTE ---
per new suicide screening pt scores high, Dr Bell and psyciatry DR Hazel made aware of the score.
--- NOTE | 2025-08-17 13:47 | W.PN.HOSP.TC ---
Today's Communication/Plan
-
Cyramza, Lasix, salt tabs
Follow-up BMP
Assessment / Plan
Assessment / Plan
Impression
Intentional drug overdose with Lexapro, trazodone, Ativan.
Hyponatremia
Conditions prior to admission
Anxiety, possible depression versus adjustment disorder
Hypertension
GERD
Left hip arthroplasty May 2025
PLAN:
Intentional drug overdose with Lexapro trazodone and Ativan
Currently patient denies any suicidal ideation, although frustrated and anxious about his medical conditions and being out of work.
ED reviewed with [facility] Control [facility] with recommendation of close monitoring.
ECG with sinus bradycardia, LBBB and chronic QT prolongation.
Follow-up ECG with stable QTc at 465
And further interview denies any suicidal ideation
Psychiatry input appreciated recommending inpatient psych treatment
Hyponatremia sodium alexx at 118�122
Suspect acute on chronic
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
Normotensive
Normal TSH
Urine osmolarity 625 confirms high ADH state
Hold SSRI for now (trazodone and Lexapro)
He does report dizziness and concentration issues.
Free water restriction to 1200 mL
Status post hypertonic solution
Status post Samsca second dose today
Sodium improved at 130
Serial BMP
Nephrology input appreciated
Urinary complaints including dysuria possibly retention.
Empirically treated UTI with TMP sulfa.
Afebrile
No urinary complaints currently
Repeat urinalysis normal
Monitor closely off antibiotic
PSA 0.24
Update 08/17 - Samsca again; Fluid restriction; lasix and salt tabs
Anticipated Discharge: 24 - 48 hours
Subjective/Interval History
-
Date of Service: August 17, 2025
no acute events overnight
Objective Data
-
Labs:
Laboratory Results
12/20/25
05:58
Sodium 129 L
Potassium 4.2
Chloride 98
Carbon Dioxide 27
BUN 25 H
Creatinine 0.9
Glucose 88
Calcium 8.8
Vital Signs:
Vital Signs
Temp Pulse Resp BP Pulse Ox
97.7 F 50 20 129/76 99
08/17/25 11:00 08/17/25 11:00 08/17/25 11:00 08/17/25 11:00 08/17/25 11:00
I&O
08/16/25 08/17/25 08/18/25
06:59 06:59 06:59
Intake Total 1460 / 1460 1240 / 1240
Balance 1460 / 1460 1240 / 1240
Review of Systems
-
History Source: Patient
All other systems: Not reviewed unless documented
Physical Exam
-
General: Well Developed and No Apparent Distress
HEENT: Normocephalic, Atraumatic and Moist Mucous Membranes
Respiratory: Clear to Auscultation
Cardiac: Regular Rhythm and S1/S2; Negative Murmur, Rub or Gallop
GI: Soft, Nontender, Nondistended and Normal Bowel Sounds; Negative Organomegaly
Rectal: Deferred by Provider
Musculoskeletal: No Clubbing, No Cyanosis and No Edema
Skin: Negative Rash
Neuro: Nonfocal/Grossly Intact
Data Reviewed
-
Labs: Labs Reviewed by me
--- NOTE | 2025-08-17 14:31 | W.PN.UPDATE ---
Update Note
Progress Note Update
See by me on 08/17/2025 from 1:32pm-1:45pm
Chart reviewed. Psychiatry follow up for intentional overdose in context of major depression. Patient states he is holding up ok but eager for transfer to inpatient psych for treatment. He is frustrated that his sodium remains low (129 today). He
denies suicidal ideations. He reports off an on sleep last night.
MSE- good eye contact. tearful. depressed mood. congruent affect. Goal-directed, logical. denies active SI. denies HI. denies AVH. fully oriented. fair I/J
A/P- 65 yo male with MDD and PTSD s/p intention OD on lexapro, trazodone and ativan. Awaiting medical stability with plan for transfer to inpatient psychiatric facility from here.
[2025-08-17 15:00] VITALS: BP 145/83
[2025-08-17 19:21] VITALS: BP 141/74
[2025-08-17] MEDS: NON-FORMULARY ITEM PO (21:15)
[2025-08-17] MEDS: PEPCID 40 MG PO (21:17)
[2025-08-17 23:21] VITALS: BP 133/78
[2025-08-18 03:06] VITALS: BP 132/77
[2025-08-18 07:00] VITALS: BP 133/67
[2025-08-18 07:45] LABS: Blood Urea Nitrogen 26 mg/dl (9-20); Calcium 9.3 mg/dl (8.4-10.2); Carbon Dioxide 31 mmol/L (22-30); Chloride 97 mmol/L (98-107); Estimated Creatinine Clearance 88 ml/min; Glucose 99 mg/dl (70-99); Potassium 4.6 mmol/L (3.5-5.1); Sodium 132 mmol/L (135-145); eGFR > 60.00
[2025-08-18] MEDS: HEPARIN SC ×2 (08:10→19:24)
[2025-08-18] MEDS: SODIUM CHLORIDE 0.5 GRAM PO ×2 (08:11→19:28)
[2025-08-18] MEDS: LASIX 10 MG PO (08:12)
[2025-08-18] MEDS: PEPCID 40 MG PO (08:13)
[2025-08-18 11:00] VITALS: BP 132/72
--- NOTE | 2025-08-18 11:58 | CM ---
Met with patient and at bedside per their request to discuss discharge plan
Patient has Voluntary 201 to [facility] when medically appropriate.
Sodium today is 132
/POA, Josee requested that Records Analyst call her in the morning @ #[phone]. If she is unable to answer, she gives permission to leave a detailed voice mail regarding discharge plan.
She wants to know how patient will be transported; if [facility] does not provide transport, she asked if can transport him?
--- NOTE | 2025-08-18 12:14 | W.PN.NEPH.PH ---
Today's Communication / Plan
-
Follow BMP
Assessment/Plan
-
Impression:
Intentional drug overdose with Lexapro, trazodone, Ativan.
Hyponatremia
HTN
Anxiety/Depression
Plan:
Continue fluid restriction
Samsca today again
Follow BMP
Continue lasix and salt tabs
-
-
Date of Service: August 18, 2025
CC / HPI / ROS
-
Chief Complaint:
Hyponatremia
History of Present Illness:
Hyponatremia in the setting of SSRI and overdose
Sodium up to 132 after Samsca
BP stable off olmesartan
Review of Systems:
No chest pain or shortness of breath
Labs
-
Labs:
WBC 2.5 10^3/uL (4.8-10.8) L 08/15/25 04:09
RBC 3.74 10^6/uL (4.70-6.10) L 08/15/25 04:09
Hgb 11.9 g/dL (13.0-18.0) L 08/15/25 04:09
Hct 34.5 % (39.0-52.0) L 08/15/25 04:09
Plt Count 148 10^3/uL (130-400) 08/15/25 04:09
Sodium 132 mmol/L (135-145) L 08/18/25 06:46
Potassium 4.6 mmol/L (3.5-5.1) 08/18/25 06:46
Chloride 97 mmol/L (98-107) L 08/18/25 06:46
Carbon Dioxide 31 mmol/L (22-30) H 08/18/25 06:46
BUN 26 mg/dl (9-20) H 08/18/25 06:46
Creatinine 0.9 mg/dL (0.7-1.3) 08/18/25 06:46
eGFR > 60.00 08/18/25 06:46
Glucose 99 mg/dl (70-99) 08/18/25 06:46
Calcium 9.3 mg/dl (8.4-10.2) 08/18/25 06:46
Albumin 4.5 g/dl (3.5-5.0) 08/13/25 08:13
Physical Exam
-
Vital Signs:
Vital Signs
Temp Pulse Resp BP Pulse Ox
98.1 F 51 20 132/72 100
08/18/25 11:00 08/18/25 11:00 08/18/25 11:00 08/18/25 11:00 08/18/25 11:00
Cardiovascular:: Regular rate and rhythm
Respiratory:: Bilateral: Coarse
Lung Excursion:: Normal
Abdomen:: Nontender and Soft
Bowel Sounds:: Normal
Extremity Edema:: None: Bilateral:
[2025-08-18] MEDS: SAMSCA 15 MG PO (12:45)
--- NOTE | 2025-08-18 13:07 | W.PN.UPDATE ---
Update Note
Progress Note Update
See by me on 08/18/2025 from 12:30pm-12:58pm
Chart reviewed. Psychiatry follow up for intentional overdose in context of major depression. Patient remains eager for transfer to inpatient psych for voluntary treatment of depression. He is frustrated that his sodium remains low but improved from
129 yesterday to 132 today. He denies suicidal ideations. We discussed what to expect from acute inpatient mental health treatment as well as what the aftercare plan should look like.
MSE- good eye contact. tearful. depressed mood. congruent affect. Goal-directed, logical. denies active SI. denies HI. denies AVH. fully oriented. fair I/J
A/P- 65 yo male with MDD and PTSD s/p intention OD on lexapro, trazodone and ativan, presents motivated for treatment. Awaiting medical stability with plan for transfer to inpatient psychiatric facility.
--- NOTE | 2025-08-18 13:33 | W.PN.HOSP.TC ---
Today's Communication/Plan
-
Lasix, Samsca, salt tabs
Follow BMP tomorrow
Assessment / Plan
Assessment / Plan
Impression
Intentional drug overdose with Lexapro, trazodone, Ativan.
Hyponatremia
Conditions prior to admission
Anxiety, possible depression versus adjustment disorder
Hypertension
GERD
Left hip arthroplasty May 2025
PLAN:
Intentional drug overdose with Lexapro trazodone and Ativan
Currently patient denies any suicidal ideation, although frustrated and anxious about his medical conditions and being out of work.
ED reviewed with [facility] Control [facility] with recommendation of close monitoring.
ECG with sinus bradycardia, LBBB and chronic QT prolongation.
Follow-up ECG with stable QTc at 465
And further interview denies any suicidal ideation
Psychiatry input appreciated recommending inpatient psych treatment
Hyponatremia sodium alexx at 118�122
Suspect acute on chronic
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
Normotensive
Normal TSH
Urine osmolarity 625 confirms high ADH state
Hold SSRI for now (trazodone and Lexapro)
He does report dizziness and concentration issues.
Free water restriction to 1200 mL
Status post hypertonic solution
Status post Samsca second dose today
Sodium improved at 130
Serial BMP
Nephrology input appreciated
Urinary complaints including dysuria possibly retention.
Empirically treated UTI with TMP sulfa.
Afebrile
No urinary complaints currently
Repeat urinalysis normal
Monitor closely off antibiotic
PSA 0.24
Update 08/17 - Samsca again; Fluid restriction; lasix and salt tabs
Update 08/18�sodium improved. Continue Lasix, salt tabs, Santiago.
Anticipated Discharge: Within 24 hours
Subjective/Interval History
-
Date of Service: August 18, 2025
No acute events overnight
Objective Data
-
Labs:
Laboratory Results
08/18/25
06:46
Sodium 132 L
Potassium 4.6
Chloride 97 L
Carbon Dioxide 31 H
BUN 26 H
Creatinine 0.9
Glucose 99
Calcium 9.3
Vital Signs:
Vital Signs
Temp Pulse Resp BP Pulse Ox
98.1 F 51 20 132/72 100
08/18/25 11:00 08/18/25 11:00 08/18/25 11:00 08/18/25 11:00 08/18/25 11:00
I&O
08/17/25 08/18/25 08/19/25
06:59 06:59 06:59
Intake Total 1240 / 1240 1240 / 1240
Balance 1240 / 1240 1240 / 1240
Review of Systems
-
History Source: Patient
All other systems: Not reviewed unless documented
Physical Exam
-
General: Well Developed and No Apparent Distress
HEENT: Normocephalic, Atraumatic and Moist Mucous Membranes
Respiratory: Clear to Auscultation
Cardiac: Regular Rhythm and S1/S2; Negative Murmur, Rub or Gallop
GI: Soft, Nontender, Nondistended and Normal Bowel Sounds; Negative Organomegaly
Rectal: Deferred by Provider
Musculoskeletal: No Clubbing, No Cyanosis and No Edema
Skin: Negative Rash
Neuro: Nonfocal/Grossly Intact
Data Reviewed
-
Labs: Labs Reviewed by me
[2025-08-18 15:03] VITALS: BP 136/78
[2025-08-18 19:00] VITALS: BP 138/75
[2025-08-18] MEDS: PEPCID PO (19:25)
[2025-08-18] MEDS: NON-FORMULARY ITEM 10 MG PO (21:05)
[2025-08-19 03:09] VITALS: BP 130/74
[2025-08-19 07:00] VITALS: BP 130/67
[2025-08-19] MEDS: SODIUM CHLORIDE 0.5 GRAM PO (08:10)
[2025-08-19] MEDS: LASIX 10 MG PO (08:11)
[2025-08-19] MEDS: HEPARIN SC ×3 (08:14→20:45)
[2025-08-19] MEDS: PEPCID PO ×3 (08:16→20:43)
[2025-08-19 10:59] LABS: Blood Urea Nitrogen 24 mg/dl (9-20); Calcium 9.0 mg/dl (8.4-10.2); Carbon Dioxide 29 mmol/L (22-30); Chloride 96 mmol/L (98-107); Estimated Creatinine Clearance 88 ml/min; Glucose 87 mg/dl (70-99); Potassium 4.1 mmol/L (3.5-5.1); Sodium 132 mmol/L (135-145); eGFR > 60.00
[2025-08-19 11:01] VITALS: BP 140/74
--- NOTE | 2025-08-19 11:44 | W.PN.NEPH.PH ---
Today's Communication / Plan
-
Samsca today again 15 mg
Lasix increased to 20 mg twice daily and increase salt tablets to 1 g twice daily as well
Assessment/Plan
-
Impression:
Intentional drug overdose with Lexapro, trazodone, Ativan.
Hyponatremia
HTN
Anxiety/Depression
Plan:
Continue fluid restriction
Samsca today again 15 mg
Lasix increased to 20 mg twice daily and increase salt tablets to 1 g twice daily as well
Apparently sodium needs to be 135 prior to discharge for inpatient psych
-
-
Date of Service: August 19, 2025
CC / HPI / ROS
-
Chief Complaint:
Hyponatremia
History of Present Illness:
Hyponatremia in the setting of SSRI and overdose
Sodium up to 132 after Samsca
BP stable off olmesartan
Review of Systems:
No chest pain or shortness of breath
Labs
-
Labs:
WBC 2.5 10^3/uL (4.8-10.8) L 08/15/25 04:09
RBC 3.74 10^6/uL (4.70-6.10) L 08/15/25 04:09
Hgb 11.9 g/dL (13.0-18.0) L 08/15/25 04:09
Hct 34.5 % (39.0-52.0) L 08/15/25 04:09
Plt Count 148 10^3/uL (130-400) 08/15/25 04:09
Sodium 132 mmol/L (135-145) L 08/19/25 08:54
Potassium 4.1 mmol/L (3.5-5.1) 08/19/25 08:54
Chloride 96 mmol/L (98-107) L 08/19/25 08:54
Carbon Dioxide 29 mmol/L (22-30) 08/19/25 08:54
BUN 24 mg/dl (9-20) H 08/19/25 08:54
Creatinine 0.9 mg/dL (0.7-1.3) 08/19/25 08:54
eGFR > 60.00 08/19/25 08:54
Glucose 87 mg/dl (70-99) 08/19/25 08:54
Calcium 9.0 mg/dl (8.4-10.2) 08/19/25 08:54
Albumin 4.5 g/dl (3.5-5.0) 08/13/25 08:13
Physical Exam
-
Vital Signs:
Vital Signs
Temp Pulse Resp BP Pulse Ox
98.6 F 53 20 140/74 100
08/19/25 11:01 08/19/25 11:01 08/19/25 11:01 08/19/25 11:01 08/19/25 11:01
Cardiovascular:: Regular rate and rhythm
Respiratory:: Bilateral: Coarse
Lung Excursion:: Normal
Abdomen:: Nontender and Soft
Bowel Sounds:: Normal
Extremity Edema:: None: Bilateral:
[2025-08-19] MEDS: SAMSCA 15 MG PO (12:12)
--- NOTE | 2025-08-19 13:11 | W.PN.HOSP.TC ---
Today's Communication/Plan
-
Sounds clear again today
Lasix increased to 20 mg a day
Continue free water restriction
BMP in a.m.
Assessment / Plan
Assessment / Plan
Impression
Intentional drug overdose with Lexapro, trazodone, Ativan.
Hyponatremia
Conditions prior to admission
Anxiety, possible depression versus adjustment disorder
Hypertension
GERD
Left hip arthroplasty May 2025
PLAN:
Intentional drug overdose with Lexapro trazodone and Ativan
Currently patient denies any suicidal ideation, although frustrated and anxious about his medical conditions and being out of work.
ED reviewed with [facility] Control [facility] with recommendation of close monitoring.
ECG with sinus bradycardia, LBBB and chronic QT prolongation.
Follow-up ECG with stable QTc at 465
And further interview denies any suicidal ideation
Psychiatry input appreciated recommending inpatient psych treatment
Hyponatremia sodium alexx at 118�122
Suspect acute on chronic
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
Normotensive
Normal TSH
Urine osmolarity 625 confirms high ADH state
Hold SSRI for now (trazodone and Lexapro)
He does report dizziness and concentration issues.
Free water restriction to 1200 mL
Status post hypertonic solution
Receiving Samsca
Initiated on Lasix
Sodium improved at 132
Serial BMP
Nephrology input appreciated
Urinary complaints including dysuria possibly retention.
Empirically treated UTI with TMP sulfa.
Afebrile
No urinary complaints currently
Repeat urinalysis normal
Monitor closely off antibiotic
PSA 0.24
Update 08/17 - Samsca again; Fluid restriction; lasix and salt tabs
Update 08/18�sodium improved. Continue Lasix, salt tabs, Santiago.
Anticipated Discharge: 24 - 48 hours
Subjective/Interval History
-
Date of Service: August 19, 2025
Objective Data
-
Labs:
Laboratory Results
08/19/25
08:54
Sodium 132 L
Potassium 4.1
Chloride 96 L
Carbon Dioxide 29
BUN 24 H
Creatinine 0.9
Glucose 87
Calcium 9.0
Vital Signs:
Vital Signs
Temp Pulse Resp BP Pulse Ox
98.6 F 53 20 140/74 100
08/19/25 11:01 08/19/25 11:01 08/19/25 11:01 08/19/25 11:01 08/19/25 11:01
I&O
08/18/25 08/19/25 08/20/25
06:59 06:59 06:59
Intake Total 1240 / 1240 1200 / 1200
Balance 1240 / 1240 1200 / 1200
Physical Exam
-
General: Well Developed and No Apparent Distress
HEENT: Normocephalic, Atraumatic and Moist Mucous Membranes
Respiratory: Clear to Auscultation
Cardiac: Regular Rhythm and S1/S2; Negative Murmur, Rub or Gallop
GI: Soft, Nontender, Nondistended and Normal Bowel Sounds; Negative Organomegaly
Rectal: Deferred by Provider
Musculoskeletal: No Clubbing, No Cyanosis and No Edema
Skin: Negative Rash
Neuro: Nonfocal/Grossly Intact
[2025-08-19 15:02] VITALS: BP 151/76
--- NOTE | 2025-08-19 15:17 | CM ---
Addendum entered by [facility] 08/19/25 16:05:
Bedside update to pt
He is hopeful for dc tomorrow to [facility]
Addendum entered by [facility] 08/19/25 15:23:
Attempted bedside visit with pt
Not available
Original Note:
CM reviewed chart- ADC 1-2 days
Call with [facility]- they will need to review clinicals once medically stable for dc (fax- [phone])
They are requesting pt sign 201 paperwork as well
CM will need to obtain prior auth for 201 placement from [facility]
201 not on chart, will needc
Update to spouse via phone
She would appreciate arranging for transport on dc, noted financial concerns with costs of transport as pt has not been working lately
Discharge Disposition- inpatient psych/201 placement
[2025-08-19] MEDS: LASIX 20 MG PO (15:34)
--- NOTE | 2025-08-19 17:05 | W.PN.UPDATE ---
Update Note
Progress Note Update
pt seen for assessment. Walking around room, waiting to be transferred to psychiatric facility. emotional, tearful that he did this, 'i'm so embarrassed.' I spoke with as well, asured her that if [facility] does not take him tomorrow I would
arrange for placement at [facility] (not their first choice due to location.)
[2025-08-19 19:21] VITALS: BP 129/73
[2025-08-19] MEDS: SODIUM CHLORIDE 1 GRAM PO (20:40)
[2025-08-19] MEDS: NON-FORMULARY ITEM 10 MG PO (20:43)
[2025-08-19 23:21] VITALS: BP 123/70
[2025-08-20 03:35] VITALS: BP 129/68
[2025-08-20 07:54] VITALS: BP 121/62
[2025-08-20] MEDS: SODIUM CHLORIDE 1 GRAM PO (08:31)
[2025-08-20] MEDS: LASIX 20 MG PO ×2 (08:31→16:25)
[2025-08-20] MEDS: PEPCID PO ×2 (08:31→08:34)
[2025-08-20] MEDS: HEPARIN SC (08:32)
[2025-08-20 09:39] LABS: Blood Urea Nitrogen 26 mg/dl (9-20); Calcium 9.4 mg/dl (8.4-10.2); Carbon Dioxide 32 mmol/L (22-30); Chloride 95 mmol/L (98-107); Estimated Creatinine Clearance 88 ml/min; Glucose 76 mg/dl (70-99); Potassium 4.3 mmol/L (3.5-5.1); Sodium 133 mmol/L (135-145); eGFR > 60.00
[2025-08-20 11:56] VITALS: BP 138/79
--- NOTE | 2025-08-20 12:48 | W.PN.HOSP.TC ---
Today's Communication/Plan
-
Medically optimized for discharge pending inpatient psychiatric facility placement.
Assessment / Plan
Assessment / Plan
Impression
Intentional drug overdose with Lexapro, trazodone, Ativan.
Hyponatremia
Conditions prior to admission
Anxiety, possible depression versus adjustment disorder
Chronic LBBB
Hypertension
GERD
Left hip arthroplasty May 2025
PLAN:
Intentional drug overdose with Lexapro trazodone and Ativan
Currently patient denies any suicidal ideation, although frustrated and anxious about his medical conditions and being out of work.
ED reviewed with [facility] Control [facility] with recommendation of close monitoring.
ECG with sinus bradycardia, LBBB and chronic QT prolongation.
Follow-up ECG with stable QTc at 465
With further interview denies any suicidal ideation
Psychiatry input appreciated recommending inpatient psych treatment
Hyponatremia sodium alexx at 118�122
Suspect acute on chronic
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
Normotensive
Normal TSH
Urine osmolarity 625 confirms high ADH state
Hold SSRI for now (trazodone and Lexapro)
Initiated on free water restriction 1200 mL
Status post Samsca.
Currently with addition of sodium tablets and loop diuretic.
Sodium stabilized and plateaued at 132�133.
In review of outpatient medical records patient with chronic hyponatremia and sodium level ranging between 130�135
Patient is currently asymptomatic with mentation at the baseline
Urinary complaints including dysuria upon admission, currently resolved
Workup negative for urinary tract infection
No evidence for acute urine retention over this hospitalization
PSA 0.24
Chronic sinus bradycardia and LBBB.
No evidence for heart block
Bradycardia improves with exertion.
Not on any AV vicki blocking agents
Essential hypertension
Has been off Benicar since admission and currently normotensive.
Avoid hypotension in the settings of hyponatremia and SIADH.
Anticipated Discharge: Within 24 hours
Subjective/Interval History
-
Date of Service: August 20, 2025
Objective Data
-
Labs:
Laboratory Results
08/20/25
08:55
Sodium 133 L
Potassium 4.3
Chloride 95 L
Carbon Dioxide 32 H
BUN 26 H
Creatinine 0.9
Glucose 76
Calcium 9.4
Vital Signs:
Vital Signs
Temp Pulse Resp BP Pulse Ox
97.8 F 52 16 138/79 98
08/20/25 11:56 08/20/25 11:56 08/20/25 11:56 08/20/25 11:56 08/20/25 11:56
I&O
08/19/25 08/20/25 08/21/25
06:59 06:59 06:59
Intake Total 1200 / 1200 1560 / 1560
Balance 1200 / 1200 1560 / 1560
Physical Exam
-
General: Well Developed and No Apparent Distress
HEENT: Normocephalic, Atraumatic and Moist Mucous Membranes
Respiratory: Clear to Auscultation
Cardiac: Regular Rhythm and S1/S2; Negative Murmur, Rub or Gallop
GI: Soft, Nontender, Nondistended and Normal Bowel Sounds; Negative Organomegaly
Rectal: Deferred by Provider
Musculoskeletal: No Clubbing, No Cyanosis and No Edema
Skin: Negative Rash
Neuro: Nonfocal/Grossly Intact
--- NOTE | 2025-08-20 13:30 | W.DCSUMMARY ---
Discharge Summary
Discharge Data
Date of Admission: 08/14/25
Date of Discharge: 08/20/25
-
Pending Results: No
Hospital Course
Impression
Intentional drug overdose with Lexapro, trazodone, Ativan.
Hyponatremia
Conditions prior to admission
Anxiety, possible depression versus adjustment disorder
Chronic LBBB
Hypertension
GERD
Left hip arthroplasty May 2025
PLAN:
Intentional drug overdose with Lexapro trazodone and Ativan
Currently patient denies any suicidal ideation, although frustrated and anxious about his medical conditions and being out of work.
ED reviewed with Po[facility] Control Center with recommendation of close monitoring.
ECG with sinus bradycardia, LBBB and chronic QT prolongation.
Follow-up ECG with stable QTc at 465
With further interview denies any suicidal ideation
Psychiatry input appreciated recommending inpatient psych treatment
Hyponatremia sodium alexx at 118
Suspect acute on chronic
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
Normotensive
Normal TSH
Urine osmolarity 625 confirms high ADH state
Hold SSRI for now (trazodone and Lexapro)
Initiated on free water restriction 1200 mL
Status post Samsca.
Currently with addition of sodium tablets and loop diuretic.
Sodium stabilized and plateaued at 132�133.
In review of outpatient medical records patient with chronic hyponatremia and sodium level ranging between 130�135
Patient is currently asymptomatic with mentation at the baseline
Urinary complaints including dysuria upon admission, currently resolved
Workup negative for urinary tract infection
No evidence for acute urine retention over this hospitalization
PSA 0.24
Chronic sinus bradycardia and LBBB.
No evidence for heart block
Bradycardia improves with exertion.
Not on any AV vicki blocking agents
Essential hypertension
Has been off Benicar since admission and currently normotensive.
Avoid hypotension in the settings of hyponatremia and SIADH.
Discharge Plan
-
Patient Disposition: Psych Facility
Discharge Diagnosis/Procedures: Intentional overdose
Acute on chronic hyponatremia
Condition: Good
Diet: Regular
Additional Diets: 1200 ml/ 40oz
Blood Work: BMP in one week
Referrals:
Laura Hernandez PA-C [Family Provider, Internal Medicine]
Prescriptions:
New
furosemide 20 mg Tablet
20 mg PO BID AT 0800,1600 Qty: 60 0RF
sodium chloride 1,000 mg Tablet,Soluble
1,000 mg PO BID Qty: 60 0RF
Continued
famotidine [Pepcid AC] 20 mg Tablet
40 mg PO BID
Voquezna 10 mg Tablet
10 mg PO HS
Patient Comments:
pt's own medication
Discontinued
Theragen Tablet
1 tab PO DAILY
sulfamethoxazole-trimethoprim [Bactrim DS] 800-160 mg Tablet
1 tab PO BID
Rx Instructions:
for 14 days starting 08/02/25
lorazepam 0.5 mg Tablet
0.5 mg PO HSPRN PRN (Reason: sleep)
olmesartan [Benicar] 5 mg Tablet
5 mg PO DAILY
escitalopram oxalate [Lexapro] 5 mg Tablet
5 mg PO DAILY
magnesium oxide 500 mg Capsule
500 mg PO HS
Discharge Orders:
Discharge Patient (As Directed); Ordered 08/20/25
Ordered By: Dexter Briggs
Discharge Date and Time
Print Language: IVORIAN
--- NOTE | 2025-08-20 13:32 | W.PN.NEPH.PH ---
Today's Communication / Plan
-
Continue current therapy
Assessment/Plan
-
Impression:
Intentional drug overdose with Lexapro, trazodone, Ativan.
Hyponatremia
HTN
Anxiety/Depression
Plan:
Continue fluid restriction
Status post Samsca x 2
Continue lace 20 mg twice daily and salt tablets to 1 g twice daily as well
Apparently sodium needs to be 135 prior to discharge for inpatient psych
Patient has chronic hyponatremia per record dating back to 2022 low 130 and labile
Not reasonable that inpatient psych requires sodium of 135
-
-
Date of Service: August 20, 2025
CC / HPI / ROS
-
Chief Complaint:
Hyponatremia
History of Present Illness:
Hyponatremia in the setting of SSRI and overdose
Sodium up to 132 after Samsca
BP stable off olmesartan
Review of Systems:
No chest pain or shortness of breath
Labs
-
Labs:
WBC 2.5 10^3/uL (4.8-10.8) L 08/15/25 04:09
RBC 3.74 10^6/uL (4.70-6.10) L 08/15/25 04:09
Hgb 11.9 g/dL (13.0-18.0) L 08/15/25 04:09
Hct 34.5 % (39.0-52.0) L 08/15/25 04:09
Plt Count 148 10^3/uL (130-400) 08/15/25 04:09
Sodium 133 mmol/L (135-145) L 08/20/25 08:55
Potassium 4.3 mmol/L (3.5-5.1) 08/20/25 08:55
Chloride 95 mmol/L (98-107) L 08/20/25 08:55
Carbon Dioxide 32 mmol/L (22-30) H 08/20/25 08:55
BUN 26 mg/dl (9-20) H 08/20/25 08:55
Creatinine 0.9 mg/dL (0.7-1.3) 08/20/25 08:55
eGFR > 60.00 08/20/25 08:55
Glucose 76 mg/dl (70-99) 08/20/25 08:55
Calcium 9.4 mg/dl (8.4-10.2) 08/20/25 08:55
Albumin 4.5 g/dl (3.5-5.0) 08/13/25 08:13
Physical Exam
-
Vital Signs:
Vital Signs
Temp Pulse Resp BP Pulse Ox
97.8 F 52 16 138/79 98
08/20/25 11:56 08/20/25 11:56 08/20/25 11:56 08/20/25 11:56 08/20/25 11:56
Cardiovascular:: Regular rate and rhythm
Respiratory:: Bilateral: Coarse
Lung Excursion:: Normal
Abdomen:: Nontender and Soft
Bowel Sounds:: Normal
Extremity Edema:: None: Bilateral:
--- NOTE | 2025-08-20 14:24 | W.PN.UPDATE ---
Update Note
Progress Note Update
pt seen for reassessment. remains depressed, head in hands. I answered many questions about inpatient care, pt signed 201. Placement at [place] pending; will need ambulance transport.
--- NOTE | 2025-08-20 14:56 | CM ---
CM reviewed pt with attending, psych, and nephro- pt ready for dc
Clinicals faxed to [facility] along with completed 201- [phone]
Per admissions/May, pt accepted for admission today
Call with [facility] for auth- [phone]
Pt meets criteria for no surprise billing- notification issued instead for 08/20-08/22 (under [id number] Urvashi Blanca)
Concurrent review or dc update due 08/23 to [phone]. [phone], auth number will be issued on 08/23 per [facility]
Pt will need BLS for safe transport
Medical necessity completed and transport arranged 1800 pickup
Bedside update to pt and update to spouse on phone
POA paperwork faxed to [facility] per their request
Original 201 with dc packet
Discharge Disposition- [facility]/201 placement
no nursing report needed fax- [phone]
[2025-08-20 15:17] VITALS: BP 143/79
[2025-08-20 19:15] VITALS: BP 135/79
--- NOTE | 2025-08-20 19:25 | PTCARENOTE ---
Assumed care of patient at 1900-patient to be discharged to [facility] via ambulance at 1910.
Patient discharged at 192, home medications returned to patient and discharged via ambulance transport.
See Nursing Shift Assx. VSS. Patient has no further concerns at this time.
== END 2025-08-20 19:24 | DRG 918 ==
LOC: 2 NORTH 11:01
PROVIDERS: Nurse Practitioner Gerontology; Specialist; ADMITTING PHYSICIAN Internal Medicine; CONSULT PHYSICIAN Psychiatry & Neurology Psychiatry; CONSULT PHYSICIAN Specialist; EMERGENCY PHYSICIAN Emergency Medicine; FAMILY PHYSICIAN Physician Assistant Medical
DX: T43.212A Poisoning by selective serotonin and norepinephrine reuptake inhibitors, intentional self-harm, initial encounter (principal); F33.9 Major depressive disorder, recurrent, unspecified; N39.0 Urinary tract infection, site not specified; E22.2 Syndrome of inappropriate secretion of antidiuretic hormone; T43.224A Poisoning by selective serotonin reuptake inhibitors, undetermined, initial encounter; F41.9 Anxiety disorder, unspecified; I10 Essential (primary) hypertension; K21.9 Gastro-esophageal reflux disease without esophagitis; I44.7 Left bundle-branch block, unspecified; F43.10 Post-traumatic stress disorder, unspecified; Z79.899 Other long term (current) drug therapy; Z96.642 Presence of left artificial hip joint
CPT/HCPCS: 80048; 80053; 80143; 80179; 80306; 80307; 81003; 82077; 82962; 83935; 84443; 85025; 85027; 93005; 96361; 96374; 99285; G0103